=== PATIENT | male | born 1960 | race Caucasian/White ===

== ENCOUNTER 2020-09-16 16:12 | Observation (INO) ==
[2020-09-16 16:46] LABS: Basophils % 1.1 %; Eosinophils % 1.1 %; Hemoglobin 11.8 g/dL (12.9-16.9); Lymphocytes # 1.8 K/mcL (0.6-4.6); Lymphocytes % 47.9 %; Mean Corpuscular HGB Conc 35.8 g/dL (31.6-35.5); Mean Corpuscular Hemoglobin 34.2 pg (28.0-33.3); Mean Corpuscular Volume 95.7 fL (83.0-100.0); Mean Platelet Volume 10.4 fL (9.4-12.4); Monocytes # 0.3 K/mcL (0.0-1.3); Monocytes % 8.6 %; Red Blood Count 3.45 M/mcL (4.19-5.50); Red Cell Distribution Width 14.2 % (11.5-14.5); Segmented Neutrophils % 41.3 %; White Blood Count 3.7 K/mcL (4.3-11.1)
[2020-09-16 16:48] LABS: Neutrophils # 1.5 K/mcL (1.6-8.9); Platelet Count 81 K/mcL (140-400)
[2020-09-16 17:01] LABS: Activated Partial Thrombo Time 29.7 Seconds (26.0-36.0); INR 1.4; Prothrombin Time 15.6 Seconds (9.4-12.1)
[2020-09-16 17:02] LABS: Alanine Aminotransferase 65 Units/L (7-52); Albumin/Globulin Ratio 0.9 (1.1-2.2); Alkaline Phosphatase 104 Units/L (34-104); Aspartate Amino Transferase 58 Units/L (13-39); BUN/Creatinine Ratio 17 (6-26); Bilirubin,Total 1.4 mg/dL (0.3-1.0); Blood Urea Nitrogen 11 mg/dL (6-20); Calcium 8.7 mg/dL (8.6-10.3); Carbon Dioxide 23 mEq/L (23-29); Chloride 106 mEq/L (98-107); Globulin 3.2 g/dL (2.4-3.5); Glucose 368 mg/dL (70-105); Osmolality,Calculated 300 (280-300); Potassium 3.9 mEq/L (3.5-5.1); Sodium 138 mEq/L (136-145); Total Protein 6.2 g/dL (6.4-8.9); eGFR For African Americans > 60 (> 60); eGFR For Non-African Americans > 60 (> 60)
[2020-09-16] MEDS ORDERED: Lactulose Oral Soln 20 GM/30 ML UDC PO ONE (17:15)
[2020-09-16] MEDS ORDERED: Ibuprofen 400 MG TABLET PO PRN (17:52)
[2020-09-16] MEDS ORDERED: Naloxone 0.4 MG/ML INJ IVP PRN (17:52)
[2020-09-16] MEDS ORDERED: Ondansetron 4 MG/2 ML VIAL IVP PRN (17:52)
[2020-09-16] MEDS ORDERED: D5% in Water 1,000 ML IVC PRN (17:56)
[2020-09-16] MEDS ORDERED: Dextrose Gel 15 GM/37.5 ML TUBE PO PRN ×2 (17:56)
[2020-09-16] MEDS ORDERED: *HR* Dextrose 50 % in Water (Vial) 50 ML VIAL IVP PRN (17:56)
[2020-09-16] MEDS ORDERED: risperiDONE 1 MG TABLET PO SCH (21:00)
[2020-09-16] MEDS ORDERED: Insulin LISPRO 300 UNITS/3 ML VIAL SUBQ SCH (21:00)
[2020-09-16] MEDS: Lactulose Oral Soln 20 GM/30 ML UDC PO SCH (21:52)
[2020-09-16] MEDS: Gabapentin 300 MG CAPSULE PO SCH (21:54)
[2020-09-17 07:06] LABS: Hematocrit 29.5 % (37.5-50.1); Hemoglobin 10.6 g/dL (12.9-16.9); Mean Corpuscular HGB Conc 35.9 g/dL (31.6-35.5); Mean Corpuscular Hemoglobin 34.4 pg (28.0-33.3); Mean Corpuscular Volume 95.8 fL (83.0-100.0); Mean Platelet Volume 10.3 fL (9.4-12.4); Red Blood Count 3.08 M/mcL (4.19-5.50); Red Cell Distribution Width 14.6 % (11.5-14.5); White Blood Count 4.1 K/mcL (4.3-11.1)
[2020-09-17 07:25] LABS: BUN/Creatinine Ratio 18 (6-26); Blood Urea Nitrogen 11 mg/dL (6-20); Calcium 8.3 mg/dL (8.6-10.3); Carbon Dioxide 24 mEq/L (23-29); Chloride 112 mEq/L (98-107); Glucose 368 mg/dL (70-105); Osmolality,Calculated 304 (280-300); Potassium 3.8 mEq/L (3.5-5.1); Sodium 140 mEq/L (136-145); eGFR For African Americans > 60 (> 60); eGFR For Non-African Americans > 60 (> 60)
[2020-09-17 07:54] LABS: Platelet Count 72 K/mcL (140-400)
[2020-09-17] MEDS ORDERED: lisinopriL 20 MG TABLET PO SCH (09:00)
[2020-09-17] MEDS: Lactulose Oral Soln 20 GM/30 ML UDC PO SCH (09:31)
[2020-09-17] MEDS: Gabapentin 300 MG CAPSULE PO SCH (09:31)
[2020-09-17] MEDS: Insulin LISPRO 300 UNITS/3 ML VIAL SUBQ SCH ×2 (09:31→12:28)
[2020-09-17 11:24] VITALS: BP 122/70
== END 2020-09-17 14:45 | disposition home or self-care (01) ==
LOC: EMEROOPIK 16:12 → INPPIK 16:12
PROVIDERS: ADMIT Family Medicine; ATTEND Family Medicine

== ENCOUNTER 2020-11-21 21:09 | Observation (INO) ==
[2020-11-21] MEDS ORDERED: 0.9 % Sodium Chloride 1,000 ML IVC ONE (21:50)
[2020-11-21 22:09] LABS: ABG Base Excess -5 mEq/L (-2 to 3); ABG HCO3 18 mEq/L (21-27); ABG Oxygen Saturation 96 % (95-98); ABG PCO2 27 mmHg (35-45); ABG PH 7.42 pH Units (7.32-7.45); ABG PO2 81 mmHg (85-104); ABG TCO2 19 mEq/L (20-26)
[2020-11-21 22:16] LABS: Basophils % 0.4 %; Eosinophils % 0.9 %; Hematocrit 30.9 % (37.5-50.1); Hemoglobin 10.9 g/dL (12.9-16.9); Immature Granulocytes % 0.2 % (0-4); Lymphocytes # 1.6 K/mcL (0.6-4.6); Lymphocytes % 35.5 %; Mean Corpuscular HGB Conc 35.3 g/dL (31.6-35.5); Mean Corpuscular Hemoglobin 33.6 pg (28.0-33.3); Mean Corpuscular Volume 95.4 fL (83.0-100.0); Mean Platelet Volume 10.8 fL (9.4-12.4); Monocytes # 0.8 K/mcL (0.0-1.3); Monocytes % 16.7 %; Neutrophils # 2.1 K/mcL (1.6-8.9); Red Blood Count 3.24 M/mcL (4.19-5.50); Red Cell Distribution Width 14.5 % (11.5-14.5); Segmented Neutrophils % 46.3 %; White Blood Count 4.5 K/mcL (4.3-11.1)
[2020-11-21 22:19] LABS: Bilirubin,Urine Negative (Negative); Blood,Urine Negative (Negative); Clarity,Urine Clear (Clear); Color,Urine Yellow (Yellow); Glucose,Urine (UA) 100 mg/dL (Normal); Ketones,Urine Negative (Negative); Leukocyte Esterase,Urine Negative (Negative); Nitrite,Urine Negative (Negative); Protein,Urine 30 mg/dL (Neg-Trace); Specific Gravity,Urine 1.015 (1.010-1.025)
[2020-11-21 22:24] LABS: Platelet Count 62 K/mcL (140-400)
[2020-11-21 22:26] LABS: INR 1.6; Prothrombin Time 18.5 Seconds (9.4-12.1)
[2020-11-21 22:29] LABS: Activated Partial Thrombo Time 32.7 Seconds (26.0-36.0)
[2020-11-21 22:38] LABS: Alanine Aminotransferase 82 Units/L (7-52); Albumin 2.4 g/dL (3.5-5.7); Albumin/Globulin Ratio 0.7 (1.1-2.2); Alkaline Phosphatase 142 Units/L (34-104); Aspartate Amino Transferase 64 Units/L (13-39); BUN/Creatinine Ratio 16 (6-26); Bilirubin,Direct 0.5 mg/dL (0.0-0.2); Bilirubin,Total 1.5 mg/dL (0.3-1.0); Blood Urea Nitrogen 17 mg/dL (6-20); Carbon Dioxide 19 mEq/L (23-29); Chloride 111 mEq/L (98-107); Ethanol < 10 mg/dL (Less than 10); Globulin 3.5 g/dL (2.4-3.5); Glucose 146 mg/dL (70-105); Osmolality,Calculated 288 (280-300); Potassium 3.6 mEq/L (3.5-5.1); Sodium 137 mEq/L (136-145); Total Protein 5.9 g/dL (6.4-8.9); Troponin I < 0.03 ng/mL (< 0.04); eGFR For African Americans > 60 (> 60); eGFR For Non-African Americans > 60 (> 60)
[2020-11-21 22:39] LABS: Amphetamine Screen,Urine Negative ng/mL (Cutoff=1000); Barbiturate Screen,Urine Negative ng/mL (Cutoff=200); Benzodiazepines Screen,Urine Negative ng/mL (Cutoff=200); Cannabinoid Screen,Urine Negative ng/mL (Cutoff = 50); Cocaine Screen,Urine Negative ng/mL (Cutoff= 300); Opiate Screen,Urine Negative ng/mL (Cutoff=300); Phencyclidine Screen,Urine Negative ng/mL (Cutoff=25)
[2020-11-21 22:44] LABS: Bacteria,Urine Few per hpf (None-Few); Granular Casts,Urine Few per lpf (None Seen); Hyaline Casts,Urine Few per lpf (None Seen); Mucus,Urine Few per lpf (None-Few); RBC,Urine 0-3 per hpf (0-3); Squamous Epithelial Cell,Urine Few per hpf (None-Few); WBC,Urine 0-3 per hpf (0-3)
[2020-11-21 22:45] LABS: Transitional Epi Cells,Urine Few per hpf (None-Few)
[2020-11-21 22:53] LABS: Calcium Oxalate Crystals,Urine Present per hpf
[2020-11-21 22:54] LABS: Renal Epithelial Cells,Urine Few per hpf (None-Few)
[2020-11-21 23:00] LABS: Other Crystals,Urine Present per hpf
[2020-11-21] MEDS ORDERED: Lactulose Oral Soln 20 GM/30 ML UDC PO ONE (23:40)
[2020-11-22] MEDS ORDERED: Dextrose Gel 15 GM/37.5 ML TUBE PO PRN ×2 (02:35)
[2020-11-22] MEDS ORDERED: Naloxone 0.4 MG/ML INJ IVP PRN (02:35)
[2020-11-22] MEDS ORDERED: D5% in Water 1,000 ML IVC PRN (02:35)
[2020-11-22] MEDS ORDERED: *HR* Dextrose 50 % in Water (Vial) 50 ML VIAL IVP PRN (02:35)
[2020-11-22] MEDS ORDERED: 0.9 % Sodium Chloride 1,000 ML IVC SCH (02:35)
[2020-11-22] MEDS ORDERED: Insulin LISPRO 300 UNITS/3 ML VIAL SUBQ SCH ×2 (06:00→21:00)
[2020-11-22 08:04] LABS: Basophils % 0.4 %; Eosinophils # 0.1 K/mcL (0.0-0.6); Eosinophils % 1.3 %; Hematocrit 31.2 % (37.5-50.1); Hemoglobin 10.8 g/dL (12.9-16.9); Immature Granulocytes % 0.2 % (0-4); Lymphocytes # 2.1 K/mcL (0.6-4.6); Lymphocytes % 45.4 %; Mean Corpuscular HGB Conc 34.6 g/dL (31.6-35.5); Mean Corpuscular Hemoglobin 33.3 pg (28.0-33.3); Mean Corpuscular Volume 96.3 fL (83.0-100.0); Mean Platelet Volume 10.6 fL (9.4-12.4); Monocytes # 0.6 K/mcL (0.0-1.3); Monocytes % 13.9 %; Neutrophils # 1.8 K/mcL (1.6-8.9); Red Blood Count 3.24 M/mcL (4.19-5.50); Red Cell Distribution Width 14.7 % (11.5-14.5); Segmented Neutrophils % 38.8 %; White Blood Count 4.5 K/mcL (4.3-11.1)
[2020-11-22] MEDS ORDERED: Ipratropium/Albuterol Neb 3 ML IH PRN (08:06)
[2020-11-22 08:12] LABS: Platelet Count 63 K/mcL (140-400)
[2020-11-22 08:17] LABS: Alanine Aminotransferase 79 Units/L (7-52); Albumin 2.3 g/dL (3.5-5.7); Albumin/Globulin Ratio 0.7 (1.1-2.2); Alkaline Phosphatase 116 Units/L (34-104); Aspartate Amino Transferase 65 Units/L (13-39); BUN/Creatinine Ratio 26 (6-26); Bilirubin,Total 1.6 mg/dL (0.3-1.0); Blood Urea Nitrogen 19 mg/dL (6-20); Calcium 7.8 mg/dL (8.6-10.3); Carbon Dioxide 20 mEq/L (23-29); Chloride 115 mEq/L (98-107); Globulin 3.4 g/dL (2.4-3.5); Glucose 112 mg/dL (70-105); Osmolality,Calculated 295 (280-300); Potassium 3.5 mEq/L (3.5-5.1); Sodium 141 mEq/L (136-145); Total Protein 5.7 g/dL (6.4-8.9); eGFR For African Americans > 60 (> 60); eGFR For Non-African Americans > 60 (> 60)
[2020-11-22] MEDS: Lactulose Oral Soln 20 GM/30 ML UDC PO SCH ×3 (08:19→20:56)
[2020-11-22] MEDS: Ringers Solution, Lactated 1,000 ML IVC SCH ×2 (08:47→15:49)
[2020-11-22] MEDS: Insulin LISPRO 300 UNITS/3 ML VIAL SUBQ SCH (17:10)
[2020-11-23] MEDS: Ringers Solution, Lactated 1,000 ML IVC SCH ×2 (00:37→10:10)
[2020-11-23 07:20] VITALS: BP 146/80
[2020-11-23 07:57] LABS: Basophils % 0.5 %; Eosinophils # 0.1 K/mcL (0.0-0.6); Eosinophils % 2.1 %; Hematocrit 30.6 % (37.5-50.1); Hemoglobin 10.7 g/dL (12.9-16.9); Lymphocytes # 1.9 K/mcL (0.6-4.6); Lymphocytes % 43.9 %; Mean Corpuscular Volume 94.4 fL (83.0-100.0); Mean Platelet Volume 10.7 fL (9.4-12.4); Monocytes # 0.6 K/mcL (0.0-1.3); Monocytes % 12.6 %; Neutrophils # 1.8 K/mcL (1.6-8.9); Red Blood Count 3.24 M/mcL (4.19-5.50); Segmented Neutrophils % 40.9 %; White Blood Count 4.4 K/mcL (4.3-11.1)
[2020-11-23 07:58] LABS: Platelet Count 57 K/mcL (140-400)
[2020-11-23 08:13] LABS: Alanine Aminotransferase 77 Units/L (7-52); Albumin 2.3 g/dL (3.5-5.7); Albumin/Globulin Ratio 0.6 (1.1-2.2); Alkaline Phosphatase 111 Units/L (34-104); Aspartate Amino Transferase 71 Units/L (13-39); BUN/Creatinine Ratio 20 (6-26); Bilirubin,Total 1.9 mg/dL (0.3-1.0); Blood Urea Nitrogen 11 mg/dL (6-20); Calcium 8.1 mg/dL (8.6-10.3); Carbon Dioxide 22 mEq/L (23-29); Chloride 109 mEq/L (98-107); Globulin 3.6 g/dL (2.4-3.5); Glucose 217 mg/dL (70-105); Osmolality,Calculated 288 (280-300); Potassium 3.3 mEq/L (3.5-5.1); Sodium 136 mEq/L (136-145); Total Protein 5.9 g/dL (6.4-8.9); eGFR For African Americans > 60 (> 60); eGFR For Non-African Americans > 60 (> 60)
[2020-11-23] MEDS: Insulin LISPRO 300 UNITS/3 ML VIAL SUBQ SCH ×3 (10:09→17:33)
[2020-11-23] MEDS: Lactulose Oral Soln 20 GM/30 ML UDC PO SCH ×2 (10:10→17:33)
== END 2020-11-23 18:05 | disposition home or self-care (01) ==
LOC: EMEROOPIK 21:09 → INPPIK 21:09
PROVIDERS: ADMIT Family Medicine; ATTEND Family Medicine

== ENCOUNTER 2020-12-08 18:50 | Observation (INO) ==
[~2020-12-08 18:50] MED LIST: MVI IV ONE; SODIUM CHLORIDE 0.9% IV ONE; VITAMIN K IV ONE
[2020-12-08] MEDS ORDERED: 0.9 % Sodium Chloride 1,000 ML IVC ONE (19:02)
[2020-12-08] MEDS ORDERED: Lactulose Oral Soln 20 GM/30 ML UDC PO ONE (19:02)
[2020-12-08] MEDS ORDERED: Thiamine (B-1) 100 MG in 0.9 % Sodium Chloride 50 ML IVPB ONE (19:22)
[2020-12-08] MEDS ORDERED: Folic Acid 1 MG in 0.9 % Sodium Chloride 50 ML IVPB ONE (19:22)
[2020-12-08 19:56] LABS: Basophils % 0.6 %; Eosinophils # 0.1 K/mcL (0.0-0.6); Eosinophils % 1.7 %; Hematocrit 38.6 % (37.5-50.1); Hemoglobin 13.7 g/dL (12.9-16.9); Immature Granulocytes % 0.4 % (0-4); Lymphocytes # 2.2 K/mcL (0.6-4.6); Lymphocytes % 45.2 %; Mean Corpuscular HGB Conc 35.5 g/dL (31.6-35.5); Mean Corpuscular Hemoglobin 33.5 pg (28.0-33.3); Mean Corpuscular Volume 94.4 fL (83.0-100.0); Mean Platelet Volume 10.2 fL (9.4-12.4); Monocytes # 0.5 K/mcL (0.0-1.3); Red Blood Count 4.09 M/mcL (4.19-5.50); Red Cell Distribution Width 14.6 % (11.5-14.5); Segmented Neutrophils % 42.1 %; White Blood Count 4.8 K/mcL (4.3-11.1)
[2020-12-08 20:04] LABS: INR 1.5; Platelet Count 76 K/mcL (140-400); Prothrombin Time 17.1 Seconds (9.4-12.1)
[2020-12-08 20:07] LABS: Activated Partial Thrombo Time 33.5 Seconds (26.0-36.0)
[2020-12-08 20:15] LABS: Alanine Aminotransferase 103 Units/L (7-52); Albumin 2.9 g/dL (3.5-5.7); Albumin/Globulin Ratio 0.6 (1.1-2.2); Alkaline Phosphatase 179 Units/L (34-104); Aspartate Amino Transferase 87 Units/L (13-39); BUN/Creatinine Ratio 22 (6-26); Bilirubin,Direct 0.6 mg/dL (0.0-0.2); Bilirubin,Indirect 1.1 mg/dL (0.0-1.0); Bilirubin,Total 1.7 mg/dL (0.3-1.0); Blood Urea Nitrogen 15 mg/dL (6-20); Calcium 8.7 mg/dL (8.6-10.3); Carbon Dioxide 23 mEq/L (23-29); Chloride 106 mEq/L (98-107); Ethanol < 10 mg/dL (Less than 10); Globulin 4.9 g/dL (2.4-3.5); Glucose 210 mg/dL (70-105); Osmolality,Calculated 289 (280-300); Sodium 136 mEq/L (136-145); Total Protein 7.8 g/dL (6.4-8.9); eGFR For African Americans > 60 (> 60); eGFR For Non-African Americans > 60 (> 60)
[2020-12-08 20:16] LABS: Troponin I < 0.03 ng/mL (< 0.04)
[2020-12-08 20:42] LABS: Bilirubin,Urine Negative (Negative); Blood,Urine Trace-intact (Negative); Clarity,Urine Clear (Clear); Color,Urine Yellow (Yellow); Glucose,Urine (UA) >=1000 mg/dL (Normal); Ketones,Urine Negative (Negative); Leukocyte Esterase,Urine Negative (Negative); Nitrite,Urine Negative (Negative); PH,Urine 6.5 pH Units (5.0-8.0); Protein,Urine 30 mg/dL (Neg-Trace); Specific Gravity,Urine >= 1.030 (1.010-1.025)
[2020-12-08 20:55] LABS: Mucus,Urine Moderate per lpf (None-Few); Squamous Epithelial Cell,Urine Few per hpf (None-Few)
[2020-12-08 20:56] LABS: Hyaline Casts,Urine Few per lpf (None Seen); Other Crystals,Urine Present per hpf
[2020-12-08 21:00] LABS: Amphetamine Screen,Urine Negative ng/mL (Cutoff=1000); Barbiturate Screen,Urine Negative ng/mL (Cutoff=200); Benzodiazepines Screen,Urine Negative ng/mL (Cutoff=200); Cannabinoid Screen,Urine Negative ng/mL (Cutoff = 50); Cocaine Screen,Urine Negative ng/mL (Cutoff= 300); Opiate Screen,Urine Negative ng/mL (Cutoff=300); Phencyclidine Screen,Urine Negative ng/mL (Cutoff=25)
[2020-12-08] MEDS ORDERED: Naloxone 0.4 MG/ML INJ IVP PRN (22:57)
[2020-12-08] MEDS ORDERED: *HR* Dextrose 50 % in Water (Vial) 50 ML VIAL IVP PRN (22:57)
[2020-12-08] MEDS ORDERED: D5% in Water 1,000 ML IVC PRN (22:57)
[2020-12-08] MEDS ORDERED: Dextrose Gel 15 GM/37.5 ML TUBE PO PRN ×2 (22:57)
[2020-12-09] MEDS: D5% in 0.45% NACL 1,000 ML IVC SCH ×2 (01:25→11:33)
[2020-12-09] MEDS: Insulin LISPRO 300 UNITS/3 ML VIAL SUBQ SCH ×4 (01:25→17:20)
[2020-12-09] MEDS: lisinopriL 20 MG TABLET PO SCH (07:36)
[2020-12-09] MEDS: Lactulose Oral Soln 20 GM/30 ML UDC PO SCH ×3 (07:36→21:26)
[2020-12-09] MEDS ORDERED: Insulin LISPRO 300 UNITS/3 ML VIAL SUBQ SCH (21:00)
[2020-12-10] MEDS ORDERED: Ondansetron 4 MG/2 ML VIAL IVP PRN (05:43)
[2020-12-10] MEDS: lisinopriL 20 MG TABLET PO SCH (08:36)
[2020-12-10] MEDS: Insulin LISPRO 300 UNITS/3 ML VIAL SUBQ SCH ×2 (08:36→12:05)
[2020-12-10] MEDS: Lactulose Oral Soln 20 GM/30 ML UDC PO SCH (08:37)
[2020-12-10 10:12] LABS: Hematocrit 37.4 % (37.5-50.1); Hemoglobin 13.5 g/dL (12.9-16.9); Mean Corpuscular HGB Conc 36.1 g/dL (31.6-35.5); Mean Corpuscular Hemoglobin 33.6 pg (28.0-33.3); Mean Platelet Volume 10.4 fL (9.4-12.4); Red Blood Count 4.02 M/mcL (4.19-5.50); Red Cell Distribution Width 14.5 % (11.5-14.5); White Blood Count 5.2 K/mcL (4.3-11.1)
[2020-12-10 10:19] LABS: BUN/Creatinine Ratio 17 (6-26); Blood Urea Nitrogen 11 mg/dL (6-20); Calcium 9.4 mg/dL (8.6-10.3); Carbon Dioxide 28 mEq/L (23-29); Chloride 101 mEq/L (98-107); Glucose 318 mg/dL (70-105); Osmolality,Calculated 296 (280-300); Potassium 3.4 mEq/L (3.5-5.1); Sodium 137 mEq/L (136-145); eGFR For African Americans > 60 (> 60); eGFR For Non-African Americans > 60 (> 60)
[2020-12-10] MEDS ORDERED: Ondansetron ODT 4 MG TAB.RAPDIS SL ONE (10:21)
[2020-12-10 10:24] LABS: Platelet Count 75 K/mcL (140-400)
[2020-12-10 13:56] VITALS: BP 149/84
== END 2020-12-10 15:05 | disposition home health service (06) ==
LOC: INPPIK 18:50 → EMEROOPIK 18:50 → INPPIK 22:20
PROVIDERS: ADMIT Family Medicine; ATTEND Family Medicine

== ENCOUNTER 2021-02-07 13:07 | Observation (INO) ==
[2021-02-07] MEDS ORDERED: Lactulose Oral Soln 20 GM/30 ML UDC PO ONE (13:13)
[2021-02-07] MEDS ORDERED: 0.9 % Sodium Chloride 1,000 ML IVC ONE (13:13)
[2021-02-07 13:39] LABS: Basophils % 0.7 %; Eosinophils # 0.1 K/mcL (0.0-0.6); Eosinophils % 1.2 %; Hematocrit 31.4 % (37.5-50.1); Hemoglobin 10.8 g/dL (12.9-16.9); Immature Granulocytes % 0.2 % (0-4); Lymphocytes % 47.8 %; Mean Corpuscular HGB Conc 34.4 g/dL (31.6-35.5); Mean Corpuscular Hemoglobin 32.5 pg (28.0-33.3); Mean Corpuscular Volume 94.6 fL (83.0-100.0); Mean Platelet Volume 9.5 fL (9.4-12.4); Monocytes # 0.4 K/mcL (0.0-1.3); Monocytes % 8.7 %; Red Blood Count 3.32 M/mcL (4.19-5.50); Red Cell Distribution Width 14.9 % (11.5-14.5); Segmented Neutrophils % 41.4 %; White Blood Count 4.2 K/mcL (4.3-11.1)
[2021-02-07 13:41] LABS: Neutrophils # 1.7 K/mcL (1.6-8.9); Platelet Count 66 K/mcL (140-400)
[2021-02-07 13:48] LABS: INR 1.6; Prothrombin Time 18.1 Seconds (9.4-12.1)
[2021-02-07 13:50] LABS: Activated Partial Thrombo Time 33.3 Seconds (26.0-36.0)
[2021-02-07 14:06] LABS: Alanine Aminotransferase 68 Units/L (7-52); Albumin 2.4 g/dL (3.5-5.7); Albumin/Globulin Ratio 0.6 (1.1-2.2); Alkaline Phosphatase 122 Units/L (34-104); Aspartate Amino Transferase 61 Units/L (13-39); BUN/Creatinine Ratio 22 (6-26); Bilirubin,Direct 0.5 mg/dL (0.0-0.2); Bilirubin,Indirect 1.2 mg/dL (0.0-1.0); Bilirubin,Total 1.7 mg/dL (0.3-1.0); Blood Urea Nitrogen 14 mg/dL (6-20); Calcium 8.1 mg/dL (8.6-10.3); Carbon Dioxide 23 mEq/L (23-29); Chloride 110 mEq/L (98-107); Creatine Kinase 83 Units/L (30-223); Ethanol < 10 mg/dL (Less than 10); Globulin 3.7 g/dL (2.4-3.5); Glucose 127 mg/dL (70-105); Osmolality,Calculated 288 (280-300); Potassium 3.7 mEq/L (3.5-5.1); Sodium 138 mEq/L (136-145); Total Protein 6.1 g/dL (6.4-8.9); eGFR For African Americans > 60 (> 60); eGFR For Non-African Americans > 60 (> 60)
[2021-02-07] MEDS ORDERED: Naloxone 0.4 MG/ML INJ IVP PRN (16:38)
[2021-02-07] MEDS ORDERED: Ondansetron 4 MG/2 ML VIAL IVP PRN (16:38)
[2021-02-07] MEDS ORDERED: D5% in Water 1,000 ML IVC PRN (16:45)
[2021-02-07] MEDS ORDERED: Dextrose Gel 15 GM/37.5 ML TUBE PO PRN ×2 (16:45)
[2021-02-07] MEDS ORDERED: *HR* Dextrose 50 % in Water (Syg) 50 ML SYRINGE IVP PRN (16:45)
[2021-02-07] MEDS: Lactulose Oral Soln 20 GM/30 ML UDC PO SCH (22:00)
[2021-02-07] MEDS: risperiDONE 1 MG TABLET PO SCH (22:00)
[2021-02-07] MEDS: 0.9 % Sodium Chloride 1,000 ML IVC SCH (22:04)
[2021-02-07] MEDS: Insulin LISPRO 300 UNITS/3 ML VIAL SUBQ SCH (22:05)
[2021-02-08 07:39] LABS: Hematocrit 28.4 % (37.5-50.1); Hemoglobin 9.7 g/dL (12.9-16.9); Mean Corpuscular HGB Conc 34.2 g/dL (31.6-35.5); Mean Corpuscular Hemoglobin 32.2 pg (28.0-33.3); Mean Corpuscular Volume 94.4 fL (83.0-100.0); Mean Platelet Volume 9.7 fL (9.4-12.4); Red Blood Count 3.01 M/mcL (4.19-5.50); Red Cell Distribution Width 14.6 % (11.5-14.5); White Blood Count 3.5 K/mcL (4.3-11.1)
[2021-02-08 07:58] LABS: Alanine Aminotransferase 57 Units/L (7-52); Albumin 2.1 g/dL (3.5-5.7); Albumin/Globulin Ratio 0.7 (1.1-2.2); Alkaline Phosphatase 91 Units/L (34-104); Aspartate Amino Transferase 53 Units/L (13-39); BUN/Creatinine Ratio 30 (6-26); Bilirubin,Total 1.6 mg/dL (0.3-1.0); Blood Urea Nitrogen 15 mg/dL (6-20); Calcium 7.7 mg/dL (8.6-10.3); Carbon Dioxide 21 mEq/L (23-29); Chloride 114 mEq/L (98-107); Globulin 3.2 g/dL (2.4-3.5); Glucose 87 mg/dL (70-105); Magnesium 1.6 mg/dL (1.6-2.6); Osmolality,Calculated 290 (280-300); Potassium 3.2 mEq/L (3.5-5.1); Sodium 140 mEq/L (136-145); Total Protein 5.3 g/dL (6.4-8.9); eGFR For African Americans > 60 (> 60); eGFR For Non-African Americans > 60 (> 60)
[2021-02-08 08:09] LABS: Platelet Count 56 K/mcL (140-400)
[2021-02-08] MEDS: Lactulose Oral Soln 20 GM/30 ML UDC PO SCH ×3 (08:17→21:16)
[2021-02-08] MEDS: lisinopriL 20 MG TABLET PO SCH (08:17)
[2021-02-08] MEDS ORDERED: Potassium Chloride Elixir 20 MEQ/15 ML UDC PO ONE (11:19)
[2021-02-08] MEDS: 0.9 % Sodium Chloride 1,000 ML IVC SCH (11:24)
[2021-02-08] MEDS: Insulin LISPRO 300 UNITS/3 ML VIAL SUBQ SCH ×4 (11:33→21:19)
[2021-02-08] MEDS: risperiDONE 1 MG TABLET PO SCH (21:17)
[2021-02-09 06:16] LABS: Basophils % 0.5 %; Eosinophils # 0.1 K/mcL (0.0-0.6); Eosinophils % 2.1 %; Hematocrit 27.3 % (37.5-50.1); Hemoglobin 9.2 g/dL (12.9-16.9); Immature Granulocytes % 0.3 % (0-4); Lymphocytes # 1.8 K/mcL (0.6-4.6); Lymphocytes % 46.2 %; Mean Corpuscular HGB Conc 33.7 g/dL (31.6-35.5); Mean Corpuscular Hemoglobin 32.5 pg (28.0-33.3); Mean Corpuscular Volume 96.5 fL (83.0-100.0); Monocytes # 0.3 K/mcL (0.0-1.3); Monocytes % 8.4 %; Neutrophils # 1.6 K/mcL (1.6-8.9); Red Blood Count 2.83 M/mcL (4.19-5.50); Segmented Neutrophils % 42.5 %; White Blood Count 3.8 K/mcL (4.3-11.1)
[2021-02-09 06:21] LABS: Platelet Count 50 K/mcL (140-400)
[2021-02-09 06:26] LABS: INR 1.6; Prothrombin Time 17.8 Seconds (9.4-12.1)
[2021-02-09 06:38] LABS: BUN/Creatinine Ratio 28 (6-26); Blood Urea Nitrogen 17 mg/dL (6-20); Calcium 7.7 mg/dL (8.6-10.3); Carbon Dioxide 20 mEq/L (23-29); Chloride 113 mEq/L (98-107); Glucose 167 mg/dL (70-105); Osmolality,Calculated 287 (280-300); Potassium 3.8 mEq/L (3.5-5.1); Sodium 136 mEq/L (136-145); eGFR For African Americans > 60 (> 60); eGFR For Non-African Americans > 60 (> 60)
[2021-02-09] MEDS: lisinopriL 20 MG TABLET PO SCH (08:45)
[2021-02-09] MEDS: Lactulose Oral Soln 20 GM/30 ML UDC PO SCH ×3 (08:45→19:55)
[2021-02-09] MEDS: Insulin LISPRO 300 UNITS/3 ML VIAL SUBQ SCH ×4 (08:46→19:55)
[2021-02-09] MEDS: Nicotine 14 MG PATCH.TD24 TD SCH (15:19)
[2021-02-09] MEDS: risperiDONE 1 MG TABLET PO SCH (19:54)
[2021-02-10 07:03] LABS: Basophils % 0.8 %; Eosinophils # 0.1 K/mcL (0.0-0.6); Eosinophils % 2.9 %; Hematocrit 28.4 % (37.5-50.1); Hemoglobin 9.8 g/dL (12.9-16.9); Immature Granulocytes % 0.3 % (0-4); Lymphocytes # 1.6 K/mcL (0.6-4.6); Lymphocytes % 42.7 %; Mean Corpuscular HGB Conc 34.5 g/dL (31.6-35.5); Mean Corpuscular Hemoglobin 32.7 pg (28.0-33.3); Mean Corpuscular Volume 94.7 fL (83.0-100.0); Mean Platelet Volume 11.4 fL (9.4-12.4); Monocytes # 0.4 K/mcL (0.0-1.3); Monocytes % 9.9 %; Neutrophils # 1.7 K/mcL (1.6-8.9); Red Cell Distribution Width 14.6 % (11.5-14.5); Segmented Neutrophils % 43.4 %; White Blood Count 3.8 K/mcL (4.3-11.1)
[2021-02-10 07:13] LABS: Platelet Count 52 K/mcL (140-400)
[2021-02-10 07:24] LABS: BUN/Creatinine Ratio 20 (6-26); Blood Urea Nitrogen 11 mg/dL (6-20); Calcium 7.7 mg/dL (8.6-10.3); Carbon Dioxide 23 mEq/L (23-29); Chloride 108 mEq/L (98-107); Glucose 279 mg/dL (70-105); Osmolality,Calculated 289 (280-300); Potassium 3.7 mEq/L (3.5-5.1); Sodium 135 mEq/L (136-145); eGFR For African Americans > 60 (> 60); eGFR For Non-African Americans > 60 (> 60)
[2021-02-10] MEDS: lisinopriL 20 MG TABLET PO SCH (09:46)
[2021-02-10] MEDS: Lactulose Oral Soln 20 GM/30 ML UDC PO SCH (09:47)
[2021-02-10] MEDS: Nicotine 14 MG PATCH.TD24 TD SCH (09:47)
[2021-02-10] MEDS: Insulin LISPRO 300 UNITS/3 ML VIAL SUBQ SCH ×2 (09:47→11:46)
[2021-02-10 11:28] VITALS: BP 144/80; PULSE 81; TEMP 97.9; O2SAT 98
[2021-02-10 12:01] VITALS: RESP 16
== END 2021-02-10 15:45 ==
LOC: INPPIK 13:07 → EMEROOPIK 13:07 → INPPIK 20:12
PROVIDERS: ADMIT Internal Medicine; ATTEND Internal Medicine